=== PATIENT | male | born 1985 | race Caucasian/White ===

== ENCOUNTER 2020-05-27 11:48 | Emergency (ER) | payer MEDICARE, MEDICAID ==
[~2020-05-27] VITALS: Ht 180.3 cm; Wt 102.1 kg
[~2020-05-27 11:48] MED LIST: INVEGA
[2020-05-27 11:53] VITALS: BP 165/105
[2020-05-27] MEDS ORDERED: DEXAMETHASONE 4 MG TABLET ONE (13:03)
--- NOTE | 2020-05-27 13:08 | NUR ---
PT MEDICATED PER EMAR. PT TOLERATED WELL.
[2020-05-27] MEDS ORDERED: BICILLIN-LA 1,200,000 UNITS/2 ML IM ONE (13:30)
[2020-05-27] MEDS ORDERED: DEXAMETHASONE 4 MG TABLET PO ONE (13:30)
--- NOTE | 2020-05-27 13:30 | NUR ---
MEDICATION ORDERED FROM PHARMACY AT THIS TIME.
--- NOTE | 2020-05-27 13:42 | NUR ---
Patient given discharge instructions and they have confirmed that they understand the instructions. Patient ambulatory with steady gait.
--- NOTE | 2020-05-27 13:42 | NUR ---
PT MEDICATED PER EMAR. PT TOLERATED WELL.
== END 2020-05-27 13:43 | disposition home or self-care (01) ==
LOC: ED 12:54
DX: J02.0 Streptococcal pharyngitis (principal); I10 Essential (primary) hypertension; E11.9 Type 2 diabetes mellitus without complications
CPT/HCPCS: 87880; 96372; 99283; J0561

== ENCOUNTER 2020-09-07 18:48 | Emergency (ER) | payer MEDICAID, MEDICARE ==
[~2020-09-07] VITALS: Ht 180.3 cm; Wt 102.0 kg
[2020-09-07 19:15] VITALS: BP 136/89
== END 2020-09-07 19:36 | disposition home or self-care (01) ==
LOC: ED 19:17
DX: F15.10 Other stimulant abuse, uncomplicated (principal); F41.9 Anxiety disorder, unspecified; R11.2 Nausea with vomiting, unspecified; Z72.9 Problem related to lifestyle, unspecified; R00.0 Tachycardia, unspecified; E11.9 Type 2 diabetes mellitus without complications; I10 Essential (primary) hypertension
CPT/HCPCS: 99281

== ENCOUNTER 2020-09-19 17:34 | Emergency (ER) | payer MEDICARE ==
[~2020-09-19] VITALS: Ht 180.3 cm; Wt 100.5 kg
[2020-09-19] MEDS ORDERED: CEFTRIAXONE 250 MG IM ONE (18:00)
[2020-09-19] MEDS ORDERED: AZITHROMYCIN 500 MG TABLET PO ONE (18:00)
[2020-09-19 18:17] LABS: MICROSCOPIC NOT IND
[2020-09-19] MEDS ORDERED: AZITHROMYCIN 500 MG TABLET ONE (18:48)
[2020-09-19] MEDS ORDERED: CEFTRIAXONE 250 MG ONE (18:48)
[2020-09-19 19:12] VITALS: BP 129/93
== END 2020-09-19 19:17 ==
LOC: ED 19:10
DX: R30.0 Dysuria (principal); R31.9 Hematuria, unspecified; I10 Essential (primary) hypertension; E11.9 Type 2 diabetes mellitus without complications; Z20.2 Contact with and (suspected) exposure to infections with a predominantly sexual mode of transmission
CPT/HCPCS: 81003; 96372; 99283; J0696

== ENCOUNTER 2021-02-06 01:01 | Emergency (ER) | payer MEDICARE, MEDICAID ==
[~2021-02-06] VITALS: Ht 180.3 cm; Wt 98.2 kg
[2021-02-06 01:03] VITALS: BP 173/98
[2021-02-06] MEDS ORDERED: BUPIVACAINE 0.25% ONE (01:20)
[2021-02-06] MEDS ORDERED: LIDOCAINE-MPF 1%, 5ML ONE (01:21)
[2021-02-06] MEDS ORDERED: CLINDAMYCIN 300 MG CAPSULE PO ONE (01:30)
[2021-02-06] MEDS ORDERED: CLINDAMYCIN 300 MG CAPSULE ONE (01:32)
== END 2021-02-06 01:37 | disposition home or self-care (01) ==
LOC: ED 01:20
DX: K05.319 Chronic periodontitis, localized, unspecified severity (principal); K08.89 Other specified disorders of teeth and supporting structures; R68.84 Jaw pain; I10 Essential (primary) hypertension; E11.9 Type 2 diabetes mellitus without complications; F17.210 Nicotine dependence, cigarettes, uncomplicated
CPT/HCPCS: 99283; 99406

== ENCOUNTER 2021-02-25 21:51 | Emergency (ER) | payer MEDICARE, MEDICAID ==
[~2021-02-25] VITALS: Ht 180.3 cm; Wt 95.4 kg
--- NOTE | 2021-02-25 21:56 | NUR ---
NIL WHEN CALLED TO TRIAGE X 1
--- NOTE | 2021-02-25 22:20 | NUR ---
assumed care of pt. pt here with a c/o dental pain/facial swelling to L lower face/jaw that has not improved after PO ABX. pt states "I have meth mouth". pt reports that he took all of his PO ABX, but did not take them consistently. pt is a smoker and smokes meth as well. no difficutly breathing speaking or swallowing. no family at bedside. sitting up on [employer] using his cell phone
[2021-02-25] MEDS ORDERED: DULA1.5P SQ (22:26)
[2021-02-25] MEDS ORDERED: METF500T17 PO (22:26)
--- NOTE | 2021-02-25 22:50 | NUR ---
Sylwia CHATTERJEE at bedside for eval and I&D
[2021-02-25] MEDS ORDERED: LIDOCAINE-MPF 1%, 5ML INFIL ONE (23:00)
[2021-02-25 23:36] VITALS: BP 119/70
== END 2021-02-25 23:40 | disposition home or self-care (01) ==
LOC: ED 22:09
DX: K04.7 Periapical abscess without sinus (principal); I10 Essential (primary) hypertension; E11.9 Type 2 diabetes mellitus without complications; F17.200 Nicotine dependence, unspecified, uncomplicated
CPT/HCPCS: 41800; 64400; 99284

== ENCOUNTER 2021-03-16 09:30 | Emergency (ER) | payer MEDICARE, MEDICAID ==
[~2021-03-16] VITALS: Ht 180.3 cm; Wt 93.3 kg
[~2021-03-16 09:30] MED LIST changes: +DULA1.5P SQ; +METF500T17 PO
[2021-03-16 09:33] VITALS: BP 152/95
--- NOTE | 2021-03-16 09:46 | NUR ---
PT AMBULATED BACK TO ROOM FROM TRIAGE. PT CO DENTAL PAIN EVEN AFTER COMPLETING COURSE OF PCN. PT CANNOT GET IN TO DENTIST UNTIL NEXT MONTH. PT DENIES ANY FEVER, NAUSEA OR VOMITING.
--- NOTE | 2021-03-16 10:17 | NUR ---
DISCHARGE INSTRUCTIONS REVIEWED WITH PT. ALL QUESTIONS ANSWERED AT THIS TIME.
== END 2021-03-16 10:20 | disposition home or self-care (01) ==
LOC: ED 10:10
DX: K02.9 Dental caries, unspecified (principal); E11.9 Type 2 diabetes mellitus without complications
CPT/HCPCS: 99283

== ENCOUNTER 2021-03-22 15:04 | Emergency (ER) | payer MEDICARE, MEDICAID ==
[~2021-03-22] VITALS: Ht 180.3 cm; Wt 80.0 kg
--- NOTE | 2021-03-22 15:16 | NUR ---
PT BIBA. PER EMS PT WAS BROUGHT HERE FROM [facility] DUE TO PATIENT NEEDING A HIGHER LEVEL OF CARE BECAUSE OF ACUTE PSYCHOSIS. PT DID METH APPROX 14 DAYS AGO. PT GOT 50MG OF BENADRYL AND 1MG OF ATIVAN PO FROM EMS. PT IS BEING COOPERATIVE AT THIS TIME AND ANSWER QUESTIONS. PT HAVING BOTH AUDITORY AND VISUAL HALLUCINATIONS. PT RESTING IN [facility], MONITORING IN PLACE, NADN AT THIS TIME, AWAITING MD EVALUATION, WCTM.
[2021-03-22 16:10] LABS: BASOPHILS % (AUTO) 1 % (0-1); EOSINOPHILS % (AUTO) 1 % (1-7); LYMPHOCYTES % (AUTO) 41 % (22-44); MEAN CORPUSCULAR HEMOGLOBIN 30.7 pg (27.5-34.5); MEAN CORPUSCULAR HGB CONC 34.7 g/dL (33.2-36.2); MEAN PLATELET VOLUME 7.2 fL (7.4-10.4); MONOCYTES % (AUTO) 10 % (2-9); NEUTROPHILS % (AUTO) 48 % (42-75); PLATELET COUNT 290 x10^3/uL (130-400); RED BLOOD COUNT 4.41 x10^6/uL (4.38-5.82); RED CELL DISTRIBUTION WIDTH 13.9 % (9.4-14.8)
[2021-03-22 16:14] LABS: MD NO
[2021-03-22 16:22] LABS: ALANINE AMINOTRANSFERASE 55 U/L (12-78); ALBUMIN 4.3 g/dL (3.4-5.0); ANION GAP 8 mmol/L (5-15); CALCIUM 8.8 mg/dL (8.5-10.1); CHLORIDE 109 mmol/L (98-107)
[2021-03-22 16:24] LABS: ALKALINE PHOSPHATASE 85 U/L (45-117); BILIRUBIN,TOTAL 0.6 mg/dL (0.2-1.0); CREATININE 0.86 mg/dL (0.7-1.3); SALICYLATE LEVEL < 1.7 mg/dL (2.8-20.0); TOTAL PROTEIN 7.5 g/dL (6.4-8.2)
[2021-03-22] MEDS ORDERED: PALIPERIDONE 3 MG TAB.ER.24 PO ONE (16:30)
--- NOTE | 2021-03-22 17:20 | NUR ---
PER RAHEEM, CENTERPUNCHER HOLD MEDICATIONS UNTIL PT IS AWAKE. PT STILL SLEEPING AT THIS TIME.
--- NOTE | 2021-03-22 18:26 | NUR ---
PT THROWING BED SIDE TABLE AND FOOD AROUND ROOM. THIS RN DE-ESCALATED HIM, PT BACK IN BED RESTING IN [facility], EDUCATED ON IMPORTANCE OF STAYING CALM. ANGELATM.
--- NOTE | 2021-03-22 18:45 | NUR ---
URINE SAMPLE COLLECTED AND SENT TO LAB.
--- NOTE | 2021-03-22 18:46 | NUR ---
REPORT GIVEN TO MANDO BAEZ.
--- NOTE | 2021-03-22 18:48 | NUR ---
report from Belinda desaivarnish thinner of care
--- NOTE | 2021-03-22 18:55 | NUR ---
PT PROVIDED SANDWICH AND COMFIRMS UNDERSTANDING THAT WE DO NOT THROW FOOD. PT CALM AND COOPERATIVE AT THIS TIME.
[2021-03-22 19:09] LABS: AMPHETAMINE SCREEN, URINE Negative (Negative); BARBITURATE SCREEN, URINE Negative (Negative); BENZODIAZEPINE SCREEN, URINE Negative (Negative); CANNABINOID SCREEN, URINE Negative (Negative); COCAINE SCREEN, URINE Negative (Negative); METHADONE SCREEN, URINE Negative (Negative); OPIATE SCREEN, URINE Negative (Negative)
[2021-03-22] MEDS ORDERED: DIVALPROEX 500 MG TAB.ER.24H ONE (19:28)
[2021-03-22] MEDS ORDERED: TRAZODONE 100MG TABLET ONE (19:28)
[2021-03-22] MEDS ORDERED: LORazepam 2 MG/ML, 1ML ONE (19:29)
[2021-03-22] MEDS ORDERED: DIVALPROEX 500 MG TAB.ER.24H PO SCH (19:30)
[2021-03-22] MEDS: LORazepam 2 MG/ML, 1ML IM PRN (19:35)
--- NOTE | 2021-03-22 19:35 | NUR ---
PT UP SHOUTING AT SITTER SWINGING CALL LIGHT SCREAMING "I MUST SHOW THE TV MY ASSHOLE TO PRAISE IT AND BRING GLORY TO ALTHEA ELLEN" PT MEDICATED PER MAR FOR AGGITATION.
--- NOTE | 2021-03-22 20:25 | NUR ---
PT NOT WILLING TO ANSWER SI REASSESMENT QUESTIONS. STS CAN'T TAKE VITALS BECAUSE "BRIA IS GOING TO KILL YOUR MOM TONIGHT AND YOU NEED TO SAY WHAT YOU NEED TO SAY AND CRY"
--- NOTE | 2021-03-22 20:33 | NUR ---
PT NOW RESTING ON GURNEY COMFORTABLY, SITTER REMAINS AT BEDSIDE FOR MONITORING AND SAFETY.
[2021-03-22] MEDS ORDERED: TRAZODONE 100MG TABLET PO PRN (21:00)
[2021-03-22] MEDS ORDERED: BUSPIRONE 5 MG TABLET PO SCH (21:00)
--- NOTE | 2021-03-22 21:23 | NUR ---
PT NOW RESTING ON GURNEY COMFORTABLY, SITTER REMAINS AT BEDSIDE FOR MONITORING AND SAFETY.
--- NOTE | 2021-03-22 22:25 | NUR ---
PT STILL RESTING ON NENA GERMAN, SITTER IN SIGHT AT THIS TIME
--- NOTE | 2021-03-22 23:31 | NUR ---
PT RESTING ON GURNEY COMFORTABLY, SITTER REMAINS AT BEDSIDE FOR MONITORING AND SAFETY.
--- NOTE | 2021-03-23 | NUR ---
PT UP OUT OF BED DANCING WITH BLANKETS SHOUTING AT SITTER, ERP UPDATED. MED ORDERED.
[2021-03-23] MEDS ORDERED: ZIPRASIDONE 20 MG INJ IM ONE ×2 (00:03→00:30)
--- NOTE | 2021-03-23 00:10 | NUR ---
PT NOW BACK TO SLEEP MED NOT GIVEN AT THIS TIME, SITTER REMAINS IN SIGHT
--- NOTE | 2021-03-23 00:32 | NUR ---
PT NOW UP SHOUTING AT SITTER AND REMOVING CLOTHING. PT MEDICATED PER MAR
--- NOTE | 2021-03-23 01:06 | NUR ---
REPORT TO ASHA TRANSFER OF CARE
--- NOTE | 2021-03-23 01:59 | NUR ---
pt pacing around room in underwear, in line of sight of sitter
--- NOTE | 2021-03-23 03:47 | NUR ---
pt resting in gurney, resp even/unlabored, in line of sight of carter
[2021-03-23] MEDS ORDERED: LORazepam 2 MG/ML, 1ML ONE ×2 (04:27→05:33)
[2021-03-23] MEDS: LORazepam 2 MG/ML, 1ML IM PRN (04:32)
--- NOTE | 2021-03-23 04:34 | NUR ---
PT ANXIOUS AND PACING AROUND ROOM, PT MEDICATED PER EMAR, IN LINE OF SIGHT OF SITTER, NO OTHER NEEDS AT THIS TIME
--- NOTE | 2021-03-23 04:52 | NUR ---
TP: PACKET FAXED TO [facility]. WAITING TO SEE IF PT IS ACCEPTED BEFORE FAXING IT TO OTHER FACILITIES
--- NOTE | 2021-03-23 04:57 | NUR ---
this rn switched the gurney to a hospital bed, pt got upset and handed an "invisible francisco" to another rn. pt calmed down, and in line of sight of carter
--- NOTE | 2021-03-23 05:07 | NUR ---
TP: PACKET FAXED TO [facility], [facility], AND [facility]
--- NOTE | 2021-03-23 05:34 | NUR ---
PT OUT OF BED SHOUTING AND THROWING ITEMS FROM TRAY, PT REMOVED BEDDING AND THREW IT ON THE FLOOR, PT SHOUTING AT SITTER TO DO SOMETHING AND HELP HIM WITH THESE THINGS AND THE LIZZ ON THE BED. STS "THANKS FOR HELPING ME IN THE MOST ROMANTIC PLACE" WHILE REACHING INTO UNDERWEAR. PT EDUCATED THAT THIS IS NOT ACCEPTABLE. INSTRUCTED TO LAY DOWN AND NOT GET OUT OF BED AGAIN, ERP UPDATED ADDITIONAL ORDERS AT THIS TIME.
--- NOTE | 2021-03-23 05:40 | NUR ---
PT MEDICATED PER MAR FOR AGGITATION
--- NOTE | 2021-03-23 05:42 | NUR ---
PT MEDICATED PER EMAR, REFUSES TO KEEP CONTINUOUS PULSE OX AT THIS TIME. WILL REATTEMPT
--- NOTE | 2021-03-23 05:43 | NUR ---
TP: SPOKE WITH JAYLEEN AT [facility]. NO ADULT BEDS AT THIS TIME. WILL KEEP IT PENDING AND IS EXPECTING BEDS TO OPEN LATER TODAY
[2021-03-23] MEDS ORDERED: LORazepam 2 MG/ML, 1ML IM ONE (06:00)
--- NOTE | 2021-03-23 06:34 | NUR ---
pt sleeping, resp even/unlabored, continuous pulse ox in place, pt sating 94% on ra. in line of sight of sitter
--- NOTE | 2021-03-23 06:53 | NUR ---
REPORT FROM ASHA GILMORE. PT ASLEEP WITH EVEN AND UNLABORED RESPIRATIONS. VSS. CONTINIOUS PULSE OX IN PLACE. NADN. SITTER AT BEDSIDE.
[2021-03-23 07:34] VITALS: BP 100/78
--- NOTE | 2021-03-23 07:35 | NUR ---
PT ASLEEP BUT ROUSABLE. RESPIRATIONS EVEN AND UNLABORED. VSS. NADN. SITTER AT BEDSIDE. CONTINOUS PULSE OX IN PLACE.
--- NOTE | 2021-03-23 08:09 | NUR ---
DJ with [facility] called and they don't have any male beds and probably won't until tomorrow but requested to speak to RN caring for pt and get report. Spoke with Genie GILMORE.
--- NOTE | 2021-03-23 08:11 | NUR ---
JEANETTE FROM [facility] CALLED STATING NO MALE BAD UNTILL TOMORROW. REPORT GIVEN.
--- NOTE | 2021-03-23 08:24 | NUR ---
PT AWAKE BRIEFLY TO VOID. PT OFFERRED BREAKFAST AND WATER. STATED "I NEED TO EXCERCISE AND EAT EGGS" QUICKLY BEFORE FALLING BACK TO SLEEP. NADN. CONTINOUS PULSE OX ON.
--- NOTE | 2021-03-23 09:34 | NUR ---
pt asleep with even and unlabored respirations. sitter at bedside. charanjit.
--- NOTE | 2021-03-23 11:10 | NUR ---
XIMENA WITH [facility] CALLED WITH DR RODRIGUEZ ACCEPTING PT FOR 1300 TODAY.
--- NOTE | 2021-03-23 11:15 | NUR ---
PT ASLEEP WITH EVEN AND UNLABORED RESPIRATIONS. NADN. SITTER AT BEDSIDE.
--- NOTE | 2021-03-23 12:37 | NUR ---
PT AWAKE. PACING IN ROOM. NADN. LUNCH GIVEN. SITTER AT BEDSIDE.
--- NOTE | 2021-03-23 13:28 | NUR ---
REPORT GIVEN TO EMS. PT LEFT WITH BELONG[facility] VIA GURNEY TO [facility].
[2021-03-23] MEDS ORDERED: PALIPERIDONE 3 MG TAB.ER.24 PO SCH (21:00)
== END 2021-03-23 13:29 ==
LOC: ED 15:54
DX: F15.150 Other stimulant abuse with stimulant-induced psychotic disorder with delusions (principal); F23 Brief psychotic disorder; I10 Essential (primary) hypertension; E11.9 Type 2 diabetes mellitus without complications; F17.200 Nicotine dependence, unspecified, uncomplicated
CPT/HCPCS: 36415; 80053; 80164; 80299; 80307; 80320; 85025; 96372; 99285; J2060; J3486; 80329; G0480